=== PATIENT | male | born 1960 | race Caucasian/White ===

== ENCOUNTER 2019-10-03 10:15 | Day surgery (SDC) | payer MEDICAID ==
[~2019-10-03] VITALS: Ht 175.3 cm; Wt 99.2 kg
[2019-10-03] MEDS ORDERED: normal saline 1000ml 1,000 ML IV PRN (10:45)
[2019-10-03 11:14] LABS: ANION GAP 11 (8-16); BLOOD UREA NITROGEN 11 MG/DL (7-18); BUN/CREATININE RATIO 9.6 (5.4-32.0); CALCIUM 9.1 MG/DL (8.5-10.1); CHLORIDE 105 MMOL/L (99-107); CREATININE 1.14 MG/DL (0.60-1.10); GLUCOSE 101 MG/DL (70-104); POTASSIUM 4.2 MMOL/L (3.5-5.1); SODIUM 141 MMOL/L (135-145); TOTAL CARBON DIOXIDE 25.2 MMOL/L (24-32); eGFR 66 ML/MIN
[2019-10-03] MEDS ORDERED: CLON0.1T PO (11:16)
[2019-10-03] MEDS ORDERED: AMLO10TA PO (11:16)
[2019-10-03] MEDS ORDERED: METO100T14 PO (11:16)
[2019-10-03] MEDS ORDERED: LISI-644 PO (11:16)
[2019-10-03 11:18] VITALS: BP 144/81
[2019-10-03 11:22] LABS: BASOPHILS # (AUTO) 0.1 X10'3 (0-0.2); BASOPHILS % (AUTO) 0.7 % (0-1); EOSINOPHILS # (AUTO) 0.3 X10'3 (0-0.9); EOSINOPHILS % (AUTO) 2.5 % (0-6); HEMOGLOBIN 16.1 g/dl (14.0-17.9); LYMPHOCYTES % (AUTO) 16.4 % (21-51); MEAN CORPUSCULAR HEMOGLOBIN 30.6 PG (27.0-31.0); MEAN CORPUSCULAR VOLUME 87.5 FL (78-98); MEAN PLATELET VOLUME 7.5 FL (7.4-10.4); MONOCYTES # (AUTO) 0.6 X10'3 (0-0.9); MONOCYTES % (AUTO) 4.5 % (2-12); NEUTROPHILS # (AUTO) 9.4 X10'3 (1.8-7.7); NEUTROPHILS % (AUTO) 75.9 % (42-75); PLATELET COUNT 248 X10'3 (140-440); RED BLOOD COUNT 5.26 X10'6 (4.70-6.10); RED CELL DISTRIBUTION WIDTH 13.6 % (11.5-14.5); WHITE BLOOD COUNT 12.4 X10'3 (4.5-11.0)
[2019-10-03] MEDS ORDERED: midazolam 2 mg/2 ml injection ONE (11:55)
[2019-10-03] MEDS ORDERED: LIDOcaine 1%/PF 5ML 10 MG/ML VIAL ONE (11:55)
[2019-10-03] MEDS ORDERED: fentaNYL/PF 50MCG/1 ML 2ML syringe ONE (11:55)
[2019-10-03] MEDS ORDERED: heparin sodium, porcine/PF 100unit/ml 5ML syringe ONE (11:55)
[2019-10-03] MEDS ORDERED: clindamycin 600mg/D5W 50ml 50 ML IV ONE (12:18)
[2019-10-03 12:40] VITALS: BP 149/89
== END 2019-10-03 13:35 | disposition home or self-care (01) ==
LOC: SSTAY O 10:15 → EDBD 10:15 → SSTAY O 13:35
PROVIDERS: ATTEND Radiology Vascular & Interventional Radiology
DX: C81.04 Nodular lymphocyte predominant Hodgkin lymphoma, lymph nodes of axilla and upper limb (principal); I10 Essential (primary) hypertension; M10.9 Gout, unspecified; Z72.89 Other problems related to lifestyle; Z88.0 Allergy status to penicillin; Z98.890 Other specified postprocedural states; Z79.899 Other long term (current) drug therapy; Z80.0 Family history of malignant neoplasm of digestive organs; Z80.1 Family history of malignant neoplasm of trachea, bronchus and lung
CPT/HCPCS: 36415; 36561; 76937; 77001; 80048; 85025; 85610; 99152; 99153; C1769; C1788; C1894; J1642; J2250; J3010; J3490